=== PATIENT | male | born 1980 | race Caucasian/White ===

== ENCOUNTER → 2022-02-05 | Emergency (ER) | payer OTHER ==
[~2022-02-05] VITALS: Ht 172.7 cm; Wt 77.1 kg
[~2022-02-05] MED LIST: CITALOPRAM HBR20 MG PO; DICLOFENAC POTA50 MG PO
== END | disposition home or self-care (01) ==
LOC: ER 09:00
DX: S63.251A Unspecified dislocation of left index finger, initial encounter (principal); W18.31XA Fall on same level due to stepping on an object, initial encounter; Y93.89 Activity, other specified; Y92.89 Other specified places as the place of occurrence of the external cause